=== PATIENT | female | born 1990 | race Caucasian/White ===

== ENCOUNTER 2019-09-26 21:19 | Emergency (ER) | payer BC, SELFPAY ==
[2019-09-26 21:28] VITALS: BP 148/76; PULSE 86; RESP 18; TEMP 37; O2SAT 95; BMI 46.6
--- NOTE | 2019-09-26 21:32 | XR_ITS ---
PROCEDURE: XR CHEST 2V CLINICAL INDICATION: edema Tobacco use, smoker, generalized edema COMPARISON: CXR CHEST(2 VIEWS-NOT PORTABLE) from 05/29/2014 FINDINGS: Unremarkable cardiovascular structures with clear lungs. Calcified granuloma is present in the right upper lobe. No acute bony findings. IMPRESSION: No acute findings. Dictated by: Aravind Sampson MD 09/27/2019 06:22 Electronically signed by Aravind Sampson MD in [place] 09/27/2019 06:22
[2019-09-26 21:43] LABS: Basophils # 0.1 K/mm3 (0-0.2); Basophils % 0.5 % (0.1-2.0); Eosinophils # 0.2 K/mm3 (0.0-0.4); Hematocrit 38.7 % (37.0-47.0); Hemoglobin 13.6 g/dL (12.2-16.2); Lymphocytes % 35.7 % (10-50); Mean Corpuscular HGB Conc 35.1 g/dL (31.8-35.4); Mean Corpuscular Hemoglobin 32.1 pg (27.0-31.2); Mean Corpuscular Volume 91.3 fl (81-99); Mean Platelet Volume 8.5 fl (7.4-10.4); Monocytes # 0.5 K/mm3 (0.1-1.0); Monocytes % 4.2 % (1.7-9.3); Neutrophils # 6.4 K/mm3 (1.8-7.8); Neutrophils % 57.7 % (37.0-80.0); Platelet Count 285 K/mm3 (142-424); Red Blood Count 4.24 M/mm3 (4.20-5.40); Red Cell Distribution Width 13.7 % (11.5-17.5); White Blood Count 11.2 K/mm3 (4.8-10.8)
[2019-09-26 21:46] LABS: Microscopic, Urine URINE MICROSCOPIC (MICROSCOPIC)
[2019-09-26 21:47] LABS: Chloride 104 mmol/L (98-107); Potassium 4.1 mmoL/L (3.5-5.1); Sodium 137 mmol/L (136-145)
[2019-09-26 21:50] LABS: Alanine Aminotransferase 19 U/L (12-78); Albumin Level 4.1 g/dl (3.5-5.0); Albumin/Globulin Ratio 1.2 (1.1-1.8); Alkaline Phosphatase 94 U/L (38-126); Anion Gap 12.1 mEq/L (5-15); Aspartate Amino Transferase 24 U/L (14-36); Bilirubin,Total 0.4 mg/dl (0.2-1.3); Blood Urea Nitrogen 11 mg/dl (7-17); Calcium 9.4 mg/dl (8.4-10.2); Carbon Dioxide 25 mmol/L (22.0-30.0); Creatinine Clearance Estimated 74 mL/min (50-200); Estimated Glomerular Filt Rate 75 ml/min (>60); GFR (African American) 91 ML/MIN (>60); Globulin 3.5 g/dL (1.3-3.2); Glucose 87 mg/dl (74-100); Total Protein,Serum 7.6 g/dl (6.3-8.2)
[2019-09-26 21:52] LABS: Appearance,Urine CLEAR (Clear); Bilirubin,Urine Negative (Negative); Blood, Urine 3+ (Negative); Color,Urine YELLOW (Yellow); Glucose,Urine (UA) Negative (Negative); Ketones,Urine Negative (Negative); Leukocyte Esterase,Urine Negative (Negative); Nitrate,Urine Negative (Negative); Protein,Urine Negative (Negative); Specific Gravity, Urine 1.025 (1.005-1.030); Urobilinogen,Urine 0.2 EU/dl (0.2)
--- NOTE | 2019-09-26 21:52 | HMH.EDEXTP ---
ED Disposition Clinical Impression: Lower extremity edema Disposition: Home, Self-Care Condition on Discharge: Good Instructions: DI for Peripheral Edema -- Bilateral Additional Instructions: see pcp in am Referrals: PCP,No [Primary Care Provider] - - Critical Care Critical Care Time: No Attestation: On 09/26/19, the high probability of a clinically significant, sudden or life threatening deterioration of the following system(s) required my full and direct attention, intervention and personal management. The time I documented below is in addition to time spent performing reported procedures but includes the following listed in this critical care notation. Medical Decision Making - Medical Records Medical records reviewed: Yes: I reviewed the patient's medical records. - Yoav Inquiry Pt receiving controlled substance: No Vital Signs: 09/26/19 21:28 Temperature 98.6 F Temperature Source Oral Pulse Rate [Right Brachial] 86 Respiratory Rate 18 Blood Pressure [Right Arm] 148/76 H Blood Pressure Mean [Right Arm] 100 Blood Pressure Source [Right Arm] Automatic Cuff Blood Pressure Position [Right Arm] Sitting 02 Sat by Pulse Oximetry 95 Oxygen Delivery Method Room Air - Lab Data Lab results reviewed: Yes: I reviewed the patient's lab results. Lab Results 09/26/19 21:33: WBC 11.2 H, RBC 4.24, Hgb 13.6, Hct 38.7, MCV 91.3, MCH 32.1 H, MCHC 35.1, RDW 13.7, Plt Count 285, MPV 8.5, Neut % (Auto) 57.7, Lymph % (Auto) 35.7, Sequoyah % (Auto) 4.2, Eos % (Auto) 2.0, Baso % (Auto) 0.5, Neut # (Auto) 6.4, Lymph # (Auto) 4.0, Sequoyah # (Auto) 0.5, Eos # (Auto) 0.2, Baso # (Auto) 0.1 09/26/19 21:33: Sodium 137, Potassium 4.1, Chloride 104, Carbon Dioxide 25, Anion Gap 12.1, BUN 11, Creatinine 0.90, Estimated Creat Clear 74, Estimated GFR 75, Est GFR ( Amer) 91, Glucose 87, Calcium 9.4, Total Bilirubin 0.4, AST 24, ALT 19, Alkaline Phosphatase 94, NT-Pro-B Natriuret Pep 51.7, Total Protein 7.6, Albumin 4.1, Globulin 3.5 H, Albumin/Globulin Ratio 1.2 09/26/19 21:33: D-Dimer 422 H* 09/26/19 21:33: TSH 1.97, Thyroxine (T4) 10.9 09/26/19 21:42: Urine Color Yellow, Urine Appearance Clear, Urine pH 6.0, Ur Specific Froh[place] 1.025, Urine Protein Negative, Urine Glucose (UA) Negative, Urine Ketones Negative, Urine Blood 3+, Urine Nitrate Negative, Urine Bilirubin Negative, Urine Urobilinogen 0.2, Ur Leukocyte Esterase Negative, Urine RBC 3-5, Urine WBC Occasional, Ur Squamous Epith Cells 5-10, Urine Bacteria Trace 09/26/19 21:42: Urine HCG, Qual Negative Result diagrams: 09/26/19 21:33 09/26/19 21:33 Orders (Tests/Meds): ORDERS Category Date Time Status XR chest 2V Stat Exams 09/26/19 21:32 Taken Extremity Problem HPI - General Chief complaint: Extremity Problem,Nontraumatic Stated complaint: Feet and Legs swollen Time Seen by Provider: 09/26/19 21:52 Mode of Arrival: Family Vehicle Source of Information: Patient, Medical Record Limitations: No Limitations Description of Symptoms (Recalled from ER Triage Doc. by RN): pt presents with bilat swollen ankles after waking up from a nap. denies abnormal positioning or previous occurrence of swellilng in the past. no significant med history. - History of Present Illness HPI Narrative: bilat swollen lower ext with no hx of dvt - no bcp but does smoke - no sob MD Complaint: extremity swelling Onset (ago): hour(s) Consistency: constant Location: lower extremity Associated symptoms: denies other symptoms - Related Data Home Medications Medication Instructions Recorded Confirmed No Known Home Medications 09/26/19 09/26/19 Allergies Allergy/AdvReac Type Severity Reaction Status Date / Time NKDA Allergy Unknown Uncoded 02/23/17 15:33 [facility] History - Hepatitis A Screen Drug use history?: No High risk sexual behaviors?: No History of sexually transmitted infection?: No Currently employed?: No Childcare worker?: No Do you have indoor plumbing?: Y
[2019-09-26 21:55] LABS: Urine Pregnancy, HCG Qual. Negative (Negative)
[2019-09-26 21:59] LABS: NT Pro Brain Natriuretic Pep. 51.7 pg/mL (0-125)
[2019-09-26 22:00] VITALS: BP 142/74; PULSE 88; RESP 18; O2SAT 98
[2019-09-26 22:00] LABS: Bacteria,Urine Trace /lpf; WBC,Urine Occasional #/hpf (0-3)
[2019-09-26 22:08] LABS: T4 (Thyroxine) 10.9 ug/dl (5.53-11.0)
[2019-09-26 22:21] LABS: Thyroid Stimulating Hormone 1.97 uIU/mL (0.465-4.68)
[2019-09-26 22:30] VITALS: BP 139/75; PULSE 82; RESP 16; O2SAT 98
[2019-09-26 22:55] LABS: D-Dimer 422 ng/mL (0-400)
[2019-09-26 23:00] VITALS: BP 141/77; PULSE 82; RESP 16; O2SAT 96
--- NOTE | 2019-09-26 23:12 | PC.NURSE ---
SPOKE WITH [facility] WHO ADVISES TO GIVE 120MG OF LOVENOX A ONE TIME DOSE
[2019-09-26 23:28] VITALS: BP 140/72; PULSE 82; RESP 16; TEMP 37; O2SAT 98
== END 2019-09-26 23:30 | disposition home or self-care (01) ==
PROVIDERS: Emergency Provider Emergency Medicine
DX: R60.0 Localized edema (principal); F17.210 Nicotine dependence, cigarettes, uncomplicated
CPT/HCPCS: 71046; 80053; 81001; 81025; 83880; 84436; 84443; 85025; 85378; 96372; 99284

== ENCOUNTER → 2019-09-27 14:36 | Outpatient (CLI) | payer BC, SELFPAY ==
--- NOTE | 2019-09-27 14:40 | CA_ITS ---
APPROVED REPORT Bilateral Lower Extremity Venous Study for DVT. Dry Janitor: SAIMA Indications Lower Extremity Edema: Bilateral pain/swelling Vein Imaging CFV (R): compressive, spontaneous, phasic, augmentation SFJ (R): compressive, spontaneous, phasic, augmentation FEM (R): compressive, spontaneous, phasic, augmentation POP (R): compressive, spontaneous, phasic, augmentation DFV (R): compressive, spontaneous, phasic, augmentation PTV (R): Compressible GSV (R): Compressible Peroneals (R):Compressible GAS (R): Compressible CFV (L): compressive, spontaneous, phasic, augmentation SFJ (L): compressive, spontaneous, phasic, augmentation FEM (L): compressive, spontaneous, phasic, augmentation POP (L): compressive, spontaneous, phasic, augmentation DFV (L): compressive, spontaneous, phasic, augmentation PTV (L): Compressible GSV (L): Compressible Peroneals (L):Compressible GAS (L): Compressible Findings No evidence of DVT or superficial thrombophlebitis in the veins scanned of the right lower extremity. No evidence of DVT or superficial thrombophlebitis in the veins scanned of the left lower extremity. Conclusion No evidence of DVT or superficial thrombophlebitis in the veins scanned of the right lower extremity. No evidence of DVT or superficial thrombophlebitis in the veins scanned of the left lower extremity. Electronically signed by : Aravind Sampson MD 09/27/2019 16:23:09
== END ==
PROVIDERS: PCP Emergency Medicine; Visit Provider Emergency Medicine
DX: M79.604 Pain in right leg (principal); M79.605 Pain in left leg; R60.0 Localized edema
CPT/HCPCS: 93970

== ENCOUNTER 2019-10-01 04:39 | Emergency (ER) | payer BC, SELFPAY ==
[2019-10-01 04:40] VITALS: BP 133/82; PULSE 84; RESP 16; TEMP 36.7; O2SAT 97; BMI 28.3
--- NOTE | 2019-10-01 04:49 | XR_ITS ---
PROCEDURE: XR CHEST 2V CLINICAL HISTORY: cough and congestion Smoking history COMPARISON: CXR CHEST(2 VIEWS-NOT PORTABLE) from 05/29/2014 XR CHEST 2V from 09/26/2019 FINDINGS: The cardiomediastinal silhouette and pulmonary vascularity are within normal limits. The lungs are clear without infiltrates, suspicious nodules, or pleural effusions. No acute bony abnormalities. IMPRESSION: No acute findings. Dictated by: Dr. Javier Quigley MD 10/01/2019 07:[address] Javier Quigley MD in [place] 10/01/2019 07:52
--- NOTE | 2019-10-01 04:56 | HMH.EDURI ---
ED Disposition Clinical Impression: Bronchitis Disposition: Home, Self-Care Condition on Discharge: Good Instructions: DI for Acute Bronchitis Additional Instructions: fluids and use meds and see pcp as needed for follow up Prescriptions: levoFLOXacin [Levaquin 500mg tab] 500 mg PO DAILY #7 tab Transmission Status: Pending to [id number] Benzonatate [Tessalon Perle 100mg Cap] 100 mg PO TID #30 cap Transmission Status: Pending to [id number] Referrals: Darren Huang MD [Primary Care Provider] - - Critical Care Critical Care Time: No Attestation: On 10/01/19, the high probability of a clinically significant, sudden or life threatening deterioration of the following system(s) required my full and direct attention, intervention and personal management. The time I documented below is in addition to time spent performing reported procedures but includes the following listed in this critical care notation. Medical Decision Making - Medical Records Medical records reviewed: Yes: I reviewed the patient's medical records. - Yoav Inquiry Pt receiving controlled substance: No Vital Signs: 10/01/19 04:40 10/01/19 05:00 Temperature 98.1 F Temperature Source Oral Pulse Rate [Left Radial] 84 88 Respiratory Rate 16 18 Blood Pressure [Right Arm] 133/82 128/80 Blood Pressure Mean [Right Arm] 99 96 Blood Pressure Source [Right Arm] Automatic Cuff Automatic Cuff Blood Pressure Position [Right Arm] Sitting Supine 02 Sat by Pulse Oximetry 97 96 Oxygen Delivery Method Room Air Room Air - Lab Data Lab results reviewed: Yes: I reviewed the patient's lab results. Lab Results 10/01/19 05:00: Influenza Type A Ag Negative, Influenza Type B Ag Negative 10/01/19 05:00: Group A Strep Rapid Negative 10/01/19 05:13: Urine Color Yellow, Urine Appearance Clear, Urine pH 6.0, Ur Specific [place] 1.020, Urine Protein Negative, Urine Glucose (UA) Negative, Urine Ketones Negative, Urine Blood Negative, Urine Nitrate Negative, Urine Bilirubin Negative, Urine Urobilinogen 0.2, Ur Leukocyte Esterase Negative, Urine WBC Occasional, Ur Squamous Epith Cells 5-10 10/01/19 05:13: Urine HCG, Qual Negative Orders (Tests/Meds): ORDERS Category Date Time Status XR chest 2V Stat Exams 10/01/19 04:49 Taken Strep Screen Confirmation Stat Micro 10/01/19 05:00 Received - Radiology Data #1 Image(s): Chest Image Reviewed: Yes I reviewed the patient's radiology image Preliminary Findings: Normal/NAD URI/Sore Throat HPI - General Chief Complaint: Upper Respiratory Infection Stated Complaint: Cough,Sore Throat,Congestion,Tightness in chest Time Seen by Provider: 10/01/19 04:56 Mode of Arrival: Ambulatory Source of Information: Patient, Medical Record Limitations: No Limitations Description of Symptoms (Recalled from ER Triage Doc. by RN): pt c/o cough, sore throat and sinus and chest congestion since yesterday. pt denies any fever or SOB. - History of Present Illness HPI Narrative: uri sx and congestion with sore throat - MD Complaint: cough, sore throat, nasal congestion Onset (ago): day(s) Severity: moderate Able to tolerate fluids by mouth: Yes Associated symptoms: denies other symptoms Treatments prior to arrival: none - Related Data Previous Rx's Medication Instructions Recorded furosemide 20 mg tablet 20 mg PO DAILY #3 tab 09/27/19 Benzonatate [Tessalon Perle 100mg 100 mg PO TID #30 cap 10/01/19 Cap] levoFLOXacin [Levaquin 500mg 500 mg PO DAILY #7 tab 10/01/19 tab] Allergies Allergy/AdvReac Type Severity Reaction Status Date / Time NKDA Allergy Unknown Uncoded 09/27/19 13:03 [facility] History - Hepatitis A Screen Drug use history?: No High risk sexual behaviors?: No History of sexually transmitted infection?: No Currently employed?: No Childcare worker?: No Do you have indoor plumbing?: Yes Do you have electricity?: Yes Attestation statement:: This toy
[2019-10-01 05:00] VITALS: BP 128/80; PULSE 88; RESP 18; O2SAT 96
[2019-10-01 05:11] LABS: Strep Scrn Group A (Rapid) Negative (Negative)
[2019-10-01 05:18] LABS: Microscopic, Urine URINE MICROSCOPIC (MICROSCOPIC)
[2019-10-01 05:20] LABS: Appearance,Urine CLEAR (Clear); Bilirubin,Urine Negative (Negative); Blood, Urine Negative (Negative); Color,Urine YELLOW (Yellow); Glucose,Urine (UA) Negative (Negative); Ketones,Urine Negative (Negative); Leukocyte Esterase,Urine Negative (Negative); Nitrate,Urine Negative (Negative); Protein,Urine Negative (Negative); Urobilinogen,Urine 0.2 EU/dl (0.2)
[2019-10-01 05:22] LABS: Urine Pregnancy, HCG Qual. Negative (Negative)
[2019-10-01 05:23] LABS: WBC,Urine Occasional #/hpf (0-3)
[2019-10-01 05:51] VITALS: BP 127/81; PULSE 81; RESP 16; TEMP 36.6; O2SAT 95
[2019-10-03 06:22] LABS: Covid-19 Nasal PCR Sendout UK NOT DETECTED
== END 2019-10-01 05:53 | disposition home or self-care (01) ==
PROVIDERS: Emergency Provider Emergency Medicine; PCP Emergency Medicine
DX: J20.9 Acute bronchitis, unspecified (principal); F17.210 Nicotine dependence, cigarettes, uncomplicated
CPT/HCPCS: 71046; 81001; 81025; 87275; 87276; 87430; 99283; U0003

== ENCOUNTER 2019-10-25 08:07 | Outpatient (RCR) | payer BC, SELFPAY | END 2019-10-25 09:05 | disposition home or self-care (01) | LOC: PT 08:07 | PROVIDERS: PCP Emergency Medicine; Visit Provider Emergency Medicine | DX: R60.0 Localized edema (principal) ==

== ENCOUNTER 2021-07-17 11:49 | Emergency (ER) | payer BC, SELFPAY ==
[2021-07-17 12:16] VITALS: BP 137/83; PULSE 77; RESP 18; TEMP 37; O2SAT 97; BMI 46.3
--- NOTE | 2021-07-17 12:23 | HMH.EDUTC ---
[facility] Disposition Clinical Impression: Upper respiratory infection, viral Disposition: Home, Self-Care Condition on Discharge: Good Instructions: DI for Viral Upper Respiratory Infection -- Adult Additional Instructions: No sign of a bacterial infection. Likely viral. Viruses can take 7-14 days to run their course. Nasal saline and bulb syringe or nose Kelley to remove nasal drainage to help with nasal congestion. Hard to eat, drink, sleep with nasal congestion so important to keep this cleaned out. Monitor temp. Tylenol or Motrin as needed for pain or fever Encourage fluids, water, Gatorade, Powerade, Pedialyte if /toddler/child Warm salt water gargles Warm fluids Sore throat lozenges Sleep elevated Humidifier/vaporizer Follow-up immediately for new or worsening symptoms or no noticeable improvement over the next 48-72 hours. Prescriptions: Brompheniramine/Pseudoephed/Dm [Bromfed Dm Cough Syrup] 5 ml PO Q4-6H PRN 7 Days #100 ml PRN Reason: Cough Transmission Status: Pending to [id number] Referrals: Darren Huang MD [Primary Care Provider] - Time of Disposition: 12:25 Medical Decision Making - Yoav Inquiry Pt receiving controlled substance: No Vital Signs: 07/17/21 12:16 Temperature 98.6 F Temperature Source Oral Pulse Rate [Radial] 77 Respiratory Rate 18 Blood Pressure [Right Arm] 137/83 Blood Pressure Mean [Right Arm] 101 02 Sat by Pulse Oximetry 97 Orders (Tests/Meds): ORDERS Category Date Time Status Rapid Strep Scrn Group A [Strep Scrn Group A (Rapid)] Lab 07/17/21 12:17 Ordered Stat [facility] HPI - General Chief complaint: Urgent Treatment Center Stated complaint: lt ear pain Time Seen by Provider: 07/17/21 12:23 Mode of Arrival: Ambulatory Source of Information: Patient Limitations: No Limitations Description of Symptoms (Recalled from Triage Doc. by RN): pt c/o right ear infection and throat scrathcy and sore HEENT Symptoms (Recalled from RN notes): Yes Resp Symptoms (Recalled from RN notes): Yes Skin Symptoms (Recalled from RN notes): No MS Symptoms (Recalled from RN notes): No Functional Status (Recalled from RN notes): wnl - History of Present Illness Provider Complaint: 31 yr old female presents for cough,runny nose, left ear pain, congestion for 2 days - Related Data Previous Rx's Medication Instructions Recorded phentermine 37.5 mg tablet 37.5 mg PO DAILY #30 tab 02/05/20 ofloxacin 0.3 % ear drops 5 drp OTIC BID 14 Days #5 ml 02/26/20 Brompheniramine/Pseudoephed/Dm 5 ml PO Q4-6H PRN 7 Days #100 ml 07/17/21 [Bromfed Dm Cough Syrup] Allergies Allergy/AdvReac Type Severity Reaction Status Date / Time NKDA Allergy Unknown Uncoded 01/25/20 14:08 - Worker's Comp Is this a Worker's Comp case?: No [facility] History - Hepatitis A Screen Attestation statement:: This patient has been screened for Hepatitis A risk factors. I have reviewed the patient's past medical history: Yes Medical History: Denies:: Diabetes Mellitus Type 1, Diabetes Mellitus Type 2 Other Surgeries: Yes: Diagnostic Lap, Other Amputation: No Fractures: Yes Comment: rt wrist fx,rt fx ankle,left broken foot - Social History Smoking Status: Current every day smoker Tobacco Type: cigarettes # Packs/Day (cigarettes): 1 Alcohol Intake: never Substance Use Type: denies use Occupational Status: employed Housing: house Family Hx:: Diabetes ROS Obtained: Yes Systems reviewed as appropriate & no additional complaints - Constitutional Constitutional: Reports system reviewed and no additional complaints, except as docu, Denies body ache, Denies chills, Denies fever(s) - Eyes Eyes: Reports system reviewed and no additional complaints, except as docu, Denies dry eyes - ENT Ears, Nose, Mouth, and Throat: Reports system reviewed and no additional complaints, except as docu, Reports nasal congestion, Reports nasal discharge, Reports post nasal drip, Rep
[2021-07-17 12:33] VITALS: BP 137/83; PULSE 77; RESP 18; TEMP 37
[2021-07-17 12:37] LABS: Strep Scrn Group A (Rapid) Negative (Negative)
[2021-07-17 21:10] LABS: UTC Influenza A Antigen Negative (Negative); UTC Influenza B Antigen Negative (Negative)
== END 2021-07-17 12:35 | disposition home or self-care (01) ==
PROVIDERS: Emergency Provider Nurse Practitioner Family; PCP Emergency Medicine
DX: J06.9 Acute upper respiratory infection, unspecified (principal); B34.9 Viral infection, unspecified; Z72.0 Tobacco use
CPT/HCPCS: 87430; 87804; 99212; G0463

== ENCOUNTER 2022-01-13 14:56 | Emergency (ER) | payer BC, SELFPAY ==
[2022-01-13 16:30] VITALS: BP 154/81; PULSE 89; RESP 19; TEMP 36.8; O2SAT 96; BMI 48.2
--- NOTE | 2022-01-13 17:08 | EXP.UTC ---
Discharge Plan Disposition Patient Disposition: Home, Self-Care Condition: Good Prescriptions Prescriptions: New methylprednisolone [Medrol (Naman)] 4 mg tablets,dose pack See Rx Instructions .Route .COMPLEX 6 Days Qty: 21 0RF Rx Instructions: taper pack; amoxicillin-pot clavulanate 875-125 mg Tablet 1 tab PO Q12H Qty: 20 0RF oxqrtdjnwrdgwuy-foezsvpne-BE [Bromfed DM] 2-30-10 mg/5 mL Syrup 10 ml PO Q4H PRN (Reason: Cough) Qty: 240 0RF No Action ofloxacin 0.3 % drops 5 drp OTIC BID 14 Days Qty: 5 2RF phentermine [Adipex-P] 37.5 mg tablet 37.5 mg PO DAILY Qty: 30 0RF Rx Instructions: must administer 30 minutes before or 1-2 hours after breakfast xzaekdfpemxiumc-siobppzix-TQ 118 ML syrup 5 ml PO Q4-6H PRN (Reason: Cough) 7 Days Qty: 100 0RF Referrals Follow up/Referrals: Darren Huang MD [Primary Care Provider] - See instructions Clinical Impressions Clinical Impression: Sinusitis, Otitis media Instructions Patient Instructions: DI for Sinusitis, Sinusitis, Middle Ear Infection Discharge ED Provider: Bonnie Burgess [facility] General Stated complaint: head congestion, sore throat, cough Mode of Arrival: Ambulatory Source of Information: Patient Limitations: No Limitations Time Seen by Provider: 01/13/22 17:08 Description of Symptoms (Recalled from Triage Doc. by RN): PATIENT C/O COUGH AND RUNNY NOSE SINCE WEDNESDAY HEENT Symptoms (Recalled from RN notes): Yes Resp Symptoms (Recalled from RN notes): Yes Skin Symptoms (Recalled from RN notes): No MS Symptoms (Recalled from RN notes): No Functional Status (Recalled from RN notes): WNL History of Present Illness Provider Complaint: Patient states that she started having sinus congestion and pressure last week that has got worse since Wednesday and has been blowing blood tinged mucous from her nose States that she feels like she has a sinus infection States she has also had cough Related Data Previous Rx's Medication Instructions Recorded phentermine 37.5 mg tablet 37.5 mg PO DAILY #30 tabs 02/05/20 (Adipex-P) ofloxacin 0.3 % ear drops 5 drp otic (ear) BID 14 days #5 mL 02/26/20 dnegfgowflzarug-jecdtowxsevjcvr-UU 5 ml PO Q4-6H PRN Cough 7 days 07/17/21 2 mg-30 mg-10 mg/5 mL oral syrup #100 mL amoxicillin 875 mg-potassium 1 tab PO Q12H #20 tabs 01/13/22 clavulanate 125 mg tablet qugbfvvbnauwfgg-ittmmhutedjppdi-WK 10 ml PO Q4H PRN Cough #240 mL 01/13/22 2 mg-30 mg-10 mg/5 mL oral syrup (Bromfed DM) methylprednisolone 4 mg tablets in See Rx Instructions .Route 01/13/22 a dose pack (Medrol (Naman)) .COMPLEX 6 days #21 tabs Allergies Allergy/AdvReac Type Severity Reaction Status Date / Time No Known Allergies Allergy Verified 01/13/22 16:51 Worker's Comp Is this a Worker's Comp case?: No [facility] Medical History (Updated 01/13/22 @ 17:15 by Bonnie Burgess APRN) No significant past medical history Social History (Updated 01/13/22 @ 16:51 by Tamara Oropeza RN) Smoking Status: Current every day smoker tobacco type: cigarettes packs per day: 1 second hand exposure: No alcohol intake: never substance use type: denies use current occupational status: employed Travel in the last 8 weeks: None housing: house ROS Obtained: Yes All systems reviewed & no additional complaints except as documented and Yes Systems reviewed as appropriate & no additional complaints except as documented Constitutional Constitutional: Reports system reviewed and no additional complaints, except as documented, Reports as per HPI and Reports fever(s) ENT Ears, Nose, Mouth, and Throat: Reports system reviewed and no additional complaints, except as documented, Reports as per HPI, Reports sinus pain and Reports sinus pressure Cardiovascular Cardiovascular: Reports system reviewed and no additional complaints, except as documented and Reports as per HPI Respiratory Respiratory: Reports system reviewed and no addit
[2022-01-13 17:18] LABS: UTC Influenza A Antigen Negative (Negative); UTC Influenza B Antigen Negative (Negative)
[2022-01-13 17:20] VITALS: BP 154/81; PULSE 89; RESP 19; TEMP 36.8; O2SAT 96
== END 2022-01-13 17:24 | disposition home or self-care (01) ==
PROVIDERS: Emergency Provider Nurse Practitioner; PCP Emergency Medicine
DX: J02.9 Acute pharyngitis, unspecified (principal); R50.9 Fever, unspecified; R05.9 Cough, unspecified; R09.89 Other specified symptoms and signs involving the circulatory and respiratory systems; F17.210 Nicotine dependence, cigarettes, uncomplicated; Z79.52 Long term (current) use of systemic steroids; Z79.899 Other long term (current) drug therapy
CPT/HCPCS: 87804; 99213; G0463

== ENCOUNTER 2023-01-14 16:39 | Emergency (ER) | payer BC, SELFPAY ==
[2023-01-14 16:40] VITALS: BP 135/80; PULSE 93; RESP 17; TEMP 36.7; O2SAT 99; BMI 43.1
--- NOTE | 2023-01-14 17:05 | HMH.EDGENADL ---
Discharge Plan Disposition Patient Disposition: Home, Self-Care Condition: Good Prescriptions Prescriptions: New naproxen 500 mg tablet 500 mg PO Q12H Qty: 20 0RF No Action ofloxacin 0.3 % drops 5 drp OTIC BID 14 Days Qty: 5 2RF phentermine [Adipex-P] 37.5 mg tablet 37.5 mg PO DAILY Qty: 30 0RF Rx Instructions: must administer 30 minutes before or 1-2 hours after breakfast bmsxifojhmwasiw-nultwzrwc-NU 118 ML syrup 5 ml PO Q4-6H PRN (Reason: Cough) 7 Days Qty: 100 0RF methylprednisolone [Medrol (Naman)] 4 mg tablets,dose pack See Rx Instructions .Route .COMPLEX 6 Days Qty: 21 0RF Rx Instructions: taper pack; amoxicillin-pot clavulanate 875-125 mg Tablet 1 tab PO Q12H Qty: 20 0RF ibxpsqoymypqlel-uupvcrdvu-NG [Bromfed DM] 2-30-10 mg/5 mL Syrup 10 ml PO Q4H PRN (Reason: Cough) Qty: 240 0RF Referrals Follow up/Referrals: Wilberto Cohn DO [Staff Physician] - See instructions Darren Huang MD [Primary Care Provider] - See instructions Activity Restrictions/Add. Instructions Additional Instructions/Restrictions: You were evaluated in the emergency department today. Please bulk picker your prescription at the pharmacy and take as prescribed. Start this tomorrow. Keep the area ice, elevated, and rest is much as possible. Use crutches as needed for severe pain. Follow-up outpatient with orthopedics and your primary care provider. Return to the emergency department for any new or worsening symptoms. Clinical Impressions Clinical Impression: Acute pain of right knee, Patellar tendinitis of right knee Instructions Patient Instructions: DI for Patellofemoral Pain Syndrome-Adult, DI for Knee Pain Discharge ED Provider: Chelsea Rai General Adult HPI General Stated complaint: RT knee pain Time Seen by Provider: 01/14/23 16:49 History of Present Illness HPI narrative: This patient is a 32-year-old female who denies any significant past medical history presented to the emergency department for evaluation with concern for atraumatic right knee pain. Patient reports that she has had knee pain for the last several days, but it worsened today. She states that it feels unstable whenever she puts weight on it for a long time. She has pain with full extension of the knee. Her pain is mostly just below her patella on the medial aspect of her knee/lower leg. She denies any falls, wounds, traumatic injuries, fevers, chills, or other concerns. She denies any history of blood clots, clotting disorders, or other issues. She has otherwise been well. Related Data Previous Rx's Medication Instructions Recorded phentermine 37.5 mg tablet 37.5 mg PO DAILY #30 tabs 02/05/20 (Adipex-P) ofloxacin 0.3 % ear drops 5 drp otic (ear) BID 14 days #5 mL 02/26/20 pncmmpyjnewhkos-evcvoadzwmiphoo-QD 5 ml PO Q4-6H PRN Cough 7 days 07/17/21 2 mg-30 mg-10 mg/5 mL oral syrup #100 mL amoxicillin 875 mg-potassium 1 tab PO Q12H #20 tabs 01/13/22 clavulanate 125 mg tablet gbphjaxlvoxlwvq-aqysvyfcbuchffv-PQ 10 ml PO Q4H PRN Cough #240 mL 01/13/22 2 mg-30 mg-10 mg/5 mL oral syrup (Bromfed DM) methylprednisolone 4 mg tablets in See Rx Instructions .Route 01/13/22 a dose pack (Medrol (Naman)) .COMPLEX 6 days #21 tabs naproxen 500 mg tablet 500 mg PO Q12H #20 tabs 01/14/23 Allergies Allergy/AdvReac Type Severity Reaction Status Date / Time No Known Allergies Allergy Verified 01/13/22 16:51 [facility] Disclaimer: The information contained in this section may have been updated after the patient was seen, as this information can be updated by other users. Medical History No significant past medical history Social History Smoking Status: Current every day smoker tobacco type: cigarettes packs per day: 1 second hand exposure: No alcohol intake: never substance use type: denies
[2023-01-14 17:56] VITALS: BP 130/75; PULSE 87; RESP 18; TEMP 36.8; O2SAT 98
[2023-01-14 18:08] VITALS: BP 130/82; PULSE 88; RESP 16; TEMP 36.6; O2SAT 96
--- NOTE | 2023-01-14 18:13 | PC.NURSE ---
pt refused crutches.
== END 2023-01-14 18:10 | disposition home or self-care (01) ==
PROVIDERS: Emergency Provider Emergency Medicine; PCP Emergency Medicine
DX: M25.561 Pain in right knee (principal); M76.51 Patellar tendinitis, right knee; F17.210 Nicotine dependence, cigarettes, uncomplicated
CPT/HCPCS: 96372; 99283

== ENCOUNTER 2023-02-01 10:08 | Emergency (ER) | payer BC, SELFPAY ==
--- NOTE | 2023-02-01 10:29 | EXP.UTC ---
Discharge Plan Disposition Patient Disposition: Home, Self-Care Condition: Good Prescriptions Prescriptions: New amoxicillin [amoxicillin] 875 mg tablet 875 mg PO Q12H Qty: 20 0RF methylprednisolone 4 mg Tablets,Dose Pack 4 mg PO DIRECTED Qty: 21 0RF fzpefldxppssohp-xbcsvvsbn-CU [Bromfed DM] 2-30-10 mg/5 mL Syrup 5 ml PO Q6H PRN (Reason: Cough) Qty: 240 0RF No Action phentermine [Adipex-P] 37.5 mg tablet 37.5 mg PO DAILY Qty: 30 0RF Rx Instructions: must administer 30 minutes before or 1-2 hours after breakfast norgestimate-ethinyl estradiol [Estarylla] 0.25-35 mg-mcg tablet 1 tab PO DAILY Patient Comments: TAKE 1 TABLET BY MOUTH 1 TIME EACH DAY lisinopril 10 mg tablet 10 mg PO DAILY Referrals Follow up/Referrals: Lucía Hamilton PA [Primary Care Provider] - See instructions Activity Restrictions/Add. Instructions Additional Instructions/Restrictions: Drink plenty of fluids. Take tylenol or ibuprofen for pain or fever. Take the medications as directed. Follow up with your regular doctor. GO TO THE ER FOR ANY WORSENING SYMPTOMS Clinical Impressions Clinical Impression: Bronchitis, Otitis media Stand Alone Forms Stand Alone Forms: Work/School Release Instructions Patient Instructions: Acute Bronchitis, DI for Acute Bronchitis Discharge ED Provider: Pedro Valenzuela [facility] General Stated complaint: sore throat, cough, ear pain Time Seen by Provider: 02/01/23 10:29 History of Present Illness Provider Complaint: She states that for the past 4 days he has had a productive cough with greenish sputum. She has sinus congestion also. Related Data Home Medications Medication Instructions Recorded Confirmed lisinopril 10 mg tablet 10 mg PO DAILY HTN 02/01/23 02/01/23 norgestimate 0.25 mg-ethinyl 1 tab PO DAILY b/c 02/01/23 02/01/23 estradiol 35 mcg tablet (Estarylla) Previous Rx's Medication Instructions Recorded phentermine 37.5 mg tablet 37.5 mg PO DAILY #30 tabs 02/05/20 (Adipex-P) amoxicillin 875 mg tablet 875 mg PO Q12H #20 tabs 02/01/23 xkcqyohmxiuhnod-xroogttqvbrzusz-PS 5 ml PO Q6H PRN Cough #240 mL 02/01/23 2 mg-30 mg-10 mg/5 mL oral syrup (Bromfed DM) methylprednisolone 4 mg tablets in 4 mg PO DIRECTED #21 tabs 02/01/23 a dose pack Allergies Allergy/AdvReac Type Severity Reaction Status Date / Time No Known Allergies Allergy Verified 02/01/23 10:58 [facility] Disclaimer: The information contained in this section may have been updated after the patient was seen, as this information can be updated by other users. Medical History No significant past medical history Social History Smoking Status: Current every day smoker tobacco type: cigarettes packs per day: 1 second hand exposure: No alcohol intake: never substance use type: denies use current occupational status: employed Travel in the last 8 weeks: None housing: house ROS Obtained: Yes All systems reviewed & no additional complaints except as documented Constitutional Constitutional: Reports poor appetite Eyes Eyes: Reports system reviewed and no additional complaints, except as documented ENT Ears, Nose, Mouth, and Throat: Reports as per HPI Cardiovascular Cardiovascular: Reports system reviewed and no additional complaints, except as documented and Denies chest pain Respiratory Respiratory: Denies shortness of breath, Reports chest congestion, Reports cough, Denies stridor and Denies wheezing Gastrointestinal Gastrointestingal: Reports system reviewed and no additional complaints, except as documented; Denies abdominal pain, diarrhea or vomiting Musculoskeletal Musculoskeletal: Reports system reviewed and no additional complaints, except as documented and Denies arthralgias Integumentary/Breasts Skin/Breast: Reports sys
[2023-02-01 10:45] VITALS: BP 156/86; PULSE 86; RESP 18; TEMP 37; O2SAT 99; BMI 43.6
[2023-02-01 11:01] LABS: UTC Strep Screen (Rapid) Negative (Negative)
[2023-02-01 11:42] VITALS: BP 156/86; PULSE 86; RESP 18; TEMP 37; O2SAT 99
== END 2023-02-01 11:42 | disposition home or self-care (01) ==
PROVIDERS: Emergency Provider Nurse Practitioner Family; PCP Physician Assistant
DX: J20.9 Acute bronchitis, unspecified (principal); H66.93 Otitis media, unspecified, bilateral; R07.0 Pain in throat; R05.8 Other specified cough; R09.81 Nasal congestion; F17.210 Nicotine dependence, cigarettes, uncomplicated
CPT/HCPCS: 87880; 99212; 99214; G0463

== ENCOUNTER 2024-01-31 13:39 | Outpatient (CLI) | payer BC, SELFPAY ==
[2024-01-31 19:19] LABS: Free Thyroxine Index 3.3 ug/dL (5.93-13.13); T4 (Thyroxine) 11.4 ug/dl (5.53-11.0); Triiodothryronine (T3) Uptake 29 % (23.5-40.5)
[2024-01-31 19:33] LABS: Thyroid Stimulating Hormone 1.64 uIU/mL (0.465-4.68)
== END 2024-01-31 23:59 | disposition home or self-care (01) ==
LOC: LAB.DROPOF 02-01 08:48
PROVIDERS: PCP Family Medicine; Visit Provider Family Medicine
DX: E04.1 Nontoxic single thyroid nodule (principal)
CPT/HCPCS: 84436; 84443; 84479

== ENCOUNTER 2024-02-15 12:43 | Outpatient (CLI) | payer BC, SELFPAY ==
--- NOTE | 2024-02-15 12:43 | US_ITS ---
FINAL REPORT CLINICAL HISTORY: thyroid nodule COMPARISON: None FINDINGS: Sonographic images of the thyroid gland were obtained. The right thyroid lobe measures 46 mm. in length. The left thyroid lobe measures 43 mm. in length. The thyroid isthmus measures 4 mm. The echogenicity is normal. Several thyroid nodules are noted. The largest nodule in the right lobe measures 4 x 3 x 2 mm. This is solid, hypoechoic, TI-RADS 4. The nodule in the left lobe measures 4 x 3 x 3 mm. This is solid, hypoechoic, TI-RADS 4. IMPRESSION: Bilateral thyroid nodules, solid, hypoechoic, TI-RADS 4. No follow-up recommended per TI-RADS criteria. Reviewed, Interpreted and Dictated by Evaristo Dubois III, MD Transcribed by Virginia Caballero Authenticated and [facility]
== END 2024-02-15 23:59 | disposition home or self-care (01) ==
LOC: RAD 12:43
PROVIDERS: PCP Family Medicine; Visit Provider Family Medicine
DX: E04.1 Nontoxic single thyroid nodule (principal)
CPT/HCPCS: 76536

== ENCOUNTER 2024-05-18 10:19 | Outpatient (CLI) | payer MEDICAID, SELFPAY ==
[2024-05-18 10:39] LABS: Basophils # 0.1 K/mm3 (0-0.2); Basophils % 0.5 % (0.1-2.0); Eosinophils # 0.1 K/mm3 (0.0-0.4); Hematocrit 39.3 % (37.0-47.0); Hemoglobin 13.4 g/dL (12.2-16.2); Lymphocytes % 28.6 % (10-50); Mean Corpuscular HGB Conc 34.1 g/dL (31.8-35.4); Mean Corpuscular Hemoglobin 31.8 pg (27.0-31.2); Mean Corpuscular Volume 93.3 fl (81-99); Mean Platelet Volume 10.2 fl (7.4-10.4); Monocytes # 0.4 K/mm3 (0.1-1.0); Monocytes % 3.8 % (1.7-9.3); Neutrophils # 6.9 K/mm3 (1.8-7.8); Neutrophils % 65.1 % (37.0-80.0); Platelet Count 300 K/mm3 (142-424); Red Blood Count 4.21 M/mm3 (4.20-5.40); Red Cell Distribution Width 12.1 % (11.5-17.5); White Blood Count 10.6 K/mm3 (4.8-10.8)
[2024-05-18 11:12] LABS: Albumin Level 4.2 g/dl (3.5-5.0); Chloride 105 mmol/L (98-107); Potassium 4.6 mmoL/L (3.5-5.1); Sodium 135 mmol/L (136-145)
[2024-05-18 11:15] LABS: Alanine Aminotransferase 19 U/L (12-78); Albumin/Globulin Ratio 1.6 (1.1-1.8); Alkaline Phosphatase 92 U/L (38-126); Anion Gap 10.6 mEq/L (5-15); Aspartate Amino Transferase 20 U/L (14-36); Bilirubin,Total 0.4 mg/dl (0.2-1.3); Blood Urea Nitrogen 11 mg/dl (7-17); Calcium 9.4 mg/dl (8.4-10.2); Carbon Dioxide 24 mmol/L (22.0-30.0); Cholesterol 168 mg/dl (140-200); Estimated Glomerular Filt Rate 116 ml/min (>60); GFR (African American) 140 ML/MIN (>60); Globulin 2.7 g/dL (1.3-3.2); Glucose 92 mg/dl (74-100); Total Protein,Serum 6.9 g/dl (6.3-8.2); Triglycerides 220 mg/dl (30-150); VLDL Cholesterol 44 mg/dL (0-40)
[2024-05-18 11:16] LABS: Chol/HDL Ratio 2.3 (1-3.5); HDL Cholesterol 74 mg/dl (40-60)
[2024-05-18 11:22] LABS: Hemoglobin A1C 4.9 % (4.0-6.0)
[2024-05-18 11:28] LABS: Direct LDL Cholesterol 62.67 mg/dL (100-129)
[2024-05-18 11:30] LABS: 25-OH Vitamin D, Total 27.5 ng/mL (30-100); Free T4 (Free Thyroxine) 1.24 ng/dl (0.78-2.19)
[2024-05-19 12:12] LABS: Insulin Level Total 31.7 uIU/mL (2.6-24.9)
== END 2024-05-18 23:59 | disposition home or self-care (01) ==
LOC: LAB 10:20
PROVIDERS: PCP Family Medicine; Visit Provider Family Medicine
DX: I10 Essential (primary) hypertension (principal); E55.9 Vitamin D deficiency, unspecified; E66.9 Obesity, unspecified
CPT/HCPCS: 36415; 80053; 80061; 82306; 83036; 83525; 84439; 84443; 85025